=== PATIENT | male | born 1955 | race Caucasian/White ===

== ENCOUNTER 2020-07-22 12:11 | Inpatient (IN) | payer SELFPAY ==
[2020-07-22 13:49] LABS: #Eosinphils 0.1 thou/uL (0.0-0.7); #Lymphocytes 0.6 thou/uL (1.20-3.40); #Monocytes 0.6 thou/uL (0.11-0.59); #Neutrophils 4.8 thou/uL (1.40-6.50); %Eosinophils 1.2 % (0.0-10.0); %Lymphocytes 10.1 % (21.0-51.0); %Monocytes 9.3 % (0.0-10.0); %Neutrophils 79.4 % (42.0-75.0); Hemoglobin 14.9 g/dL (14.0-18.0); Mean Corpuscular HGB CONC 33.8 g/dL (32.0-36.0); Mean Corpuscular Hemoglobin 35.1 pg (27.0-31.0); RBC Distribution Width 13.3 % (11.5-14.5); Red Blood Cell (RBC) Count 4.26 mill/uL (4.70-6.10)
[2020-07-22 14:17] LABS: MDiff Complete? YES; Mean Platelet Volume 6.3 fL (7.4-10.4); Platelet Count 65 thou/uL (130-400)
[2020-07-22 14:18] LABS: Macrocytosis SLIGHT = 6-15 cells (100X) (0-5/hpf); Platelet Morphology Comment Appears Decreased; Polychromasia SLIGHT = 2-3 cells (100X) (0-2/hpf)
[2020-07-22 14:36] LABS: Anion Gap 17 mmol/L (10-20); Calcium 8.9 mg/dL (7.8-10.44); Carbon Dioxide 25 mmol/L (23-31); Chloride 93 mmol/L (98-107); Globulin 5.6 g/dL (2.4-3.5); Glucose 126 mg/dL (80-115); Potassium 3.5 mmol/L (3.5-5.1); Protein, Total 8.6 g/dL (5.8-8.1); Sodium 130 mmol/L (136-145); Sodium 131 mmol/L (136-145)
[2020-07-22 14:37] LABS: Alkaline Phosphatase 111 U/L (40-110); Anion Gap 15 mmol/L (10-20); BUN (Urea Nitrogen) 17 mg/dL (8.4-25.7); BUN (Urea Nitrogen) 18 mg/dL (8.4-25.7); Bilirubin, Total 5.1 mg/dL (0.2-1.2); Calc. Creatinine Clearance 0 mL/min (70-130); Carbon Dioxide 26 mmol/L (23-31); Estimated GFR-MDRD 68; Estimated GFR-MDRD 69
[2020-07-22 14:38] LABS: ALT (SGPT) 36 U/L (8-55); AST (SGOT) 69 U/L (5-34); Bilirubin, Direct 2.8 mg/dL (0.1-0.3)
[2020-07-22 15:16] LABS: Lipase 32 U/L (8-78)
[2020-07-22] MEDS ORDERED: Iopamidol-370 76% 500 ML 1 ML ONE (15:16)
--- NOTE | 2020-07-22 16:20 | CT ---
CT abdomen and pelvis with IV contrast HISTORY: Abdominal pain. Cirrhosis. FINDINGS: Small amount right pleural fluid. 2.2 cm cyst at the superior pole of the left kidney. No e vidence of urinary tract obstruction. Spleen is enlarged up to 14.7 cm. Distended veins present near the splenic hilum. Partial recanalizat ion of the umbilical vein. Small focus of dystrophic calcification in the wall of the gallbladder fundus. Irregular contour of t he liver. No evidence of bowel obstruction. Mild wall thickening and edematous appearance of the colon and, to a lesser extent, the small bowel. Small amount of free fluid present throughout the abdomen. Appendix not inflamed. Dystrophic calcification of the prostate gland. Degenerative changes lumbar spine and hips. Nonenlarged, nonspecific lymph nodes throughout the retroperitoneum. IMPRESSION : Cirrhosis and findings of portal venous hypertension, including splenomegaly, splenic varices, small amount of ascites, small amount right pleural fluid, and congestive appearance of the bowel. Other incidental-type findings as detailed above.
[2020-07-22] MEDS ORDERED: Morphine 4 MG/ML VIAL ONE (16:54)
--- NOTE | 2020-07-22 20:08 | PDOC.BPN ---
- Brief Progress Note [id number] HP dictated
[2020-07-22 20:26] LABS: INR-International Normal Ratio 1.2; Prothrombin Time 15.6 sec (12.0-14.7)
[2020-07-22] MEDS ORDERED: Famotidine/PF 20 mg/2ml Vial SLOW IVP SCH (21:00)
[2020-07-22 22:21] VITALS: BMI 24.4
--- NOTE | 2020-07-22 22:22 | HP ---
CHIEF COMPLAINT: Abdominal pain. HISTORY OF PRESENT ILLNESS: Mr. Cruz is a 65-year-old male with past medical history of liver cirrhosis, hepatitis C, presented to the emergency room with lower abdominal pain. As per patient, the pain has been going on for almost a month. The patient also had severe anorexia, where he has not eaten much over the past few days. The patient said that he had significant ascites, which was tapped about 10 days ago and they got like more than 8 L? Currently, he is on spironolactone 100 mg p.o. twice a day, Lasix 40 mg p.o. daily, omeprazole. He was getting GI care over [facility], but he lost his job and insurance, so he has not seen any GI specialist recently. Workup in the emergency room including imaging studies showed cirrhosis and findings of portal venous hypertension including splenomegaly, splenic varices, a small amount of ascites and small right pleural effusion. Lab work, bilirubin is 5.1, direct is 2.8. Sodium is 130, alkaline phosphatase 111, AST is 69, ALT 36, CRP 0.6. WBC count is 6, hemoglobin 14.9, platelets 65. As per patient's family, patient has been feeling weak that he has been passing out. The last time was a week ago. The patient is being admitted to hospital for further management. PAST MEDICAL HISTORY: As mentioned above in history of present illness. PAST SURGICAL HISTORY: None except for paracentesis. SOCIAL HISTORY: He currently uses tobacco, smokes cigarettes. He smokes half pack per day. He used to be a heavy drinker, but he cut down significantly. Denies drug abuse. FAMILY HISTORY: Reviewed and noncontributory. HOME MEDICATIONS: See home medication reconciliation form for updated medications. ALLERGIES: NO KNOWN ALLERGIES. REVIEW OF SYSTEMS: Review of 14 systems negative except for what is mentioned in history of present illness. PHYSICAL EXAMINATION: GENERAL: The patient is awake, alert, in moderate distress. VITAL SIGNS: Blood pressure is 114/74, pulse is 80, respiratory rate is 18, temperature 99, oxygen saturation 98% on room air. HEAD AND NECK: Normocephalic, atraumatic. Sclerae icteric. HEART: S1, S2. Regular. ABDOMEN: Mildly distended. Diffusely tender, more in the lower abdomen. Bowel sounds present. NEUROLOGIC: Awake, alert, oriented x3. No focal deficit. PSYCH: Unable to assess. EXTREMITIES: No clubbing, no cyanosis. GENITOURINARY: Mild suprapubic tenderness. No flank tenderness. SKIN: No apparent rash. LABORATORY DATA: As mentioned above in history of present illness. IMAGING STUDIES: As mentioned above in history of present illness. ASSESSMENT: 1. Abdominal pain, etiology? Not clear. 2. Liver cirrhosis. 3. Hepatitis C. 4. History of alcohol abuse. 5. Thrombocytopenia. 6. Hyponatremia. 7. Generalized weakness. PLAN: 1. Admit. 2. Pain management with close monitoring of vital signs if he requires a high dose of IV opiates. 3. GI consulted for evaluation and further recommendations. 4. Reconcile home medications. 5. DVT prophylaxis as appropriate. 6. Expected length of stay at least 1 midnight. Job ID: [id number]
[2020-07-22] MEDS: Spironolactone 100 MG TAB PO SCH (23:10)
[2020-07-23 05:12] LABS: ALT (SGPT) 30 U/L (8-55); AST (SGOT) 51 U/L (5-34); Albumin 2.6 g/dL (3.4-4.8); Alkaline Phosphatase 94 U/L (40-110); Anion Gap 14 mmol/L (10-20); BUN (Urea Nitrogen) 22 mg/dL (8.4-25.7); Bilirubin, Total 4.4 mg/dL (0.2-1.2); Calc. Creatinine Clearance 67 mL/min (70-130); Calcium 8.3 mg/dL (7.8-10.44); Carbon Dioxide 25 mmol/L (23-31); Chloride 93 mmol/L (98-107); Estimated GFR-MDRD 68; Globulin 4.4 g/dL (2.4-3.5); Glucose 101 mg/dL (80-115); Potassium 3.8 mmol/L (3.5-5.1); Sodium 128 mmol/L (136-145)
[2020-07-23 05:38] LABS: #Eosinphils 0.2 thou/uL (0.0-0.7); #Lymphocytes 0.7 thou/uL (1.20-3.40); #Monocytes 0.6 thou/uL (0.11-0.59); #Neutrophils 3.5 thou/uL (1.40-6.50); %Basophils 0.7 % (0.0-1.0); %Eosinophils 4.1 % (0.0-10.0); %Monocytes 12.1 % (0.0-10.0); %Neutrophils 69.1 % (42.0-75.0); Hemoglobin 12.4 g/dL (14.0-18.0); Mean Corpuscular HGB CONC 35.7 g/dL (32.0-36.0); Mean Corpuscular Hemoglobin 37.2 pg (27.0-31.0); Mean Platelet Volume 6.4 fL (7.4-10.4); Platelet Count 53 thou/uL (130-400); RBC Distribution Width 13.3 % (11.5-14.5); Red Blood Cell (RBC) Count 3.34 mill/uL (4.70-6.10); White Blood Cell (WBC) Count 5.1 thou/uL (4.8-10.8)
[2020-07-23 05:39] LABS: MDiff Complete? YES; Macrocytosis SLIGHT = 6-15 cells (100X) (0-5/hpf); Platelet Morphology Comment Appears Decreased
[2020-07-23] MEDS: Spironolactone 100 MG TAB PO SCH ×2 (10:14→20:57)
[2020-07-23] MEDS: Furosemide 40 MG TAB PO SCH (10:14)
[2020-07-23] MEDS: Morphine 2 MG/ML VIAL SLOW IVP PRN ×2 (10:14→14:37)
[2020-07-23] MEDS: cefTRIAXone\\ROCEPHIN 1 GM in Sodium Chloride 0.9% 100 ML IVPB SCH (10:15)
[2020-07-23] MEDS ORDERED: GoLYTELY 4,000 ml Bottle PO SCH (17:00)
--- NOTE | 2020-07-23 18:44 | PDOC.HOSPP ---
- Subjective Encounter Date: 07/23/20 Encounter Time: 12:00 Subjective: Patient was seen and examined in bed. He complains of ongoing abdominal pain. Denies any chest pain or shortness of breath. He refused to have Covid tested prior to admission. no significant overnight events. - Objective Vital Signs & Weight: Vital Signs (12 hours) Temp Pulse Resp BP BP Pulse Ox 07/23/20 16:32 98.0 F 97 18 121/73 95 07/23/20 11:45 97.2 F L 90 18 124/76 96 07/23/20 09:25 98.1 F 100 18 124/69 96 07/23/20 07:34 98.0 F 95 16 118/68 97 Weight Admit Weight 151 lb 8 oz Weight 151 lb 8 oz I&O: 07/22/20 07/23/20 07/24/20 06:59 06:59 06:59 Intake Total 150 Output Total 200 Balance -50 Result Diagrams: 07/23/20 04:15 07/23/20 04:15 Additional Labs: Accuchecks 07/23/20 09:20 POC Glucose 112 H Hospitalist ROS - Medication Medications: Active Medications Generic Name Dose Route Start Last Admin Trade Name Freq PRN Reason Stop Dose Admin Furosemide 40 mg 07/23/20 07:30 07/23/20 10:14 Furosemide 40 Mg Tab PO 40 mg DAILY-AC TONY Administration Ceftriaxone Sodium 1 gm/ 100 mls @ 200 mls/hr 07/23/20 10:00 07/23/20 10:15 Sodium Chloride IVPB 100 mls 1000 TONY Administration Morphine Sulfate 2 mg 07/23/20 09:59 07/23/20 14:37 Morphine 2 Mg/Ml Vial SLOW IVP 2 mg Q4H PRN Administration Pain Pantoprazole Sodium 40 mg 07/23/20 09:00 07/23/20 10:14 Pantoprazole 40 Mg Tab PO 40 mg DAILY TONY Administration Polyethylene Glycol/Electrolytes 4,000 ml 07/23/20 17:00 07/23/20 17:04 Golytely 4,000 Ml Bottle PO 07/23/20 23:59 4,000 ml 1700 TONY Administration Spironolactone 100 mg 07/22/20 21:00 07/23/20 10:14 Spironolactone 100 Mg Tab PO 100 mg BID TONY Administration - Exam General Appearance: awake alert General - other findings: Has poor memory of events. Eye: scleral icterus Eye - other findings: No pallor Heart: RRR, no murmur, no gallops, no rubs Respiratory: no wheezes, no rales, no ronchi, no tachypnea Gastrointestinal: soft, normal bowel sounds, tender to palpation Extremities: no cyanosis, no clubbing, no edema Hosp A/P - Plan This is a 65-year-old male patient with a history of liver cirrhosis admitted overnight on account of abdominal pain. He is primarily followed up at [facility]. Abdominal pain Etiology unclear possible SBP Statin ceftriaxone Consult GI As needed pain medications. Liver cirrhosis Associated mild ascites Continue monitoring. Ascites Had a top 10 days ago with 8 L removed Continue on spironolactone and Lasix Thrombocytopenia Likely secondary to liver disease Not on heparin and no schistocytes on smear Anemia Hemoglobin slightly dropped to 12.4 We will continue monitoring. Hyponatremia Mild at 128 Likely secondary to liver disease Sodium restriction Fluid restriction if no improvement Continue BMP monitoring. VT prophylaxisnone CODE STATUSfull code removed.
[2020-07-23] MEDS: Ondansetron PF 4 MG/2 ML Vial IVP PRN (20:56)
[2020-07-23 22:51] LABS: SARS-CoV-2 MS2 Positive; SARS-CoV-2 N Gene Negative; SARS-CoV-2 S Gene Negative; SARS-CoV-2 by NAA Not Detected (NotDetected); SARS-CoV-2 orf1ab Negative
[2020-07-23 22:52] LABS: Bacteria/HPF None Seen HPF (None Seen); Bilirubin Negative (Negative); Blood, Urine Negative (Negative); Clarity Clear (Clear); Glucose, Urine (Dipstick) Normal (Negative); Ketone, Urine Negative (Negative); Leukocyte Negative Leu/uL (Negative); Nitrite Negative (Negative); Protein, Urine (Dipstick) Negative (Neg-Trace); RBC/HPF 0-3 HPF (0-3); Specific Gravity, Urine 1.019 (1.002-1.036); Squamous Epithelial 0-3 HPF (0-3); Urobilinogen Normal mg/dL (Less than 2); WBC/HPF 0-3 HPF (0-3)
[2020-07-24 04:31] LABS: #Eosinphils 0.1 thou/uL (0.0-0.7); #Lymphocytes 0.6 thou/uL (1.20-3.40); #Monocytes 0.6 thou/uL (0.11-0.59); #Neutrophils 3.5 thou/uL (1.40-6.50); %Basophils 0.2 % (0.0-1.0); %Lymphocytes 13.1 % (21.0-51.0); %Monocytes 11.7 % (0.0-10.0); %Neutrophils 72.1 % (42.0-75.0); Hemoglobin 12.3 g/dL (14.0-18.0); Mean Corpuscular HGB CONC 34.9 g/dL (32.0-36.0); Mean Corpuscular Hemoglobin 36.4 pg (27.0-31.0); Mean Platelet Volume 6.2 fL (7.4-10.4); Platelet Count 55 thou/uL (130-400); RBC Distribution Width 13.3 % (11.5-14.5); Red Blood Cell (RBC) Count 3.39 mill/uL (4.70-6.10); White Blood Cell (WBC) Count 4.9 thou/uL (4.8-10.8)
[2020-07-24 04:40] LABS: Anion Gap 15 mmol/L (10-20); BUN (Urea Nitrogen) 23 mg/dL (8.4-25.7); Calc. Creatinine Clearance 77 mL/min (70-130); Calcium 8.4 mg/dL (7.8-10.44); Carbon Dioxide 26 mmol/L (23-31); Chloride 92 mmol/L (98-107); Estimated GFR-MDRD 81; Glucose 103 mg/dL (80-115); Potassium 3.6 mmol/L (3.5-5.1); Sodium 129 mmol/L (136-145)
[2020-07-24] MEDS: cefTRIAXone\\ROCEPHIN 1 GM in Sodium Chloride 0.9% 100 ML IVPB SCH (10:29)
[2020-07-24] MEDS ORDERED: PROPOFOL 200 MG/20 ML VIAL ONE (11:37)
[2020-07-24] MEDS ORDERED: Lidocaine 1% PF 5 ML VIAL ONE (11:37)
--- NOTE | 2020-07-24 12:07 | CON ---
DATE OF CONSULTATION: 07/23/2020 REASON FOR CONSULTATION: Abdominal pain. HISTORY OF PRESENT ILLNESS: Andrew Cruz is a 65-year-old male. He has abdominal pain over the last several weeks. Apparently, the patient was brought to the ER by the family and hospitalized. He appears very comfortable. Abdominal pain is going on for several weeks. The pain is . However, most of the pain is across the lower abdomen. At times, he has had pain over the periumbilical area and also left upper quadrant. He is very nervous and anxious. He is not a good historian. Most of the things he answers by saying that he has been going for some time and is very vague about symptoms. His bowel movements are fairly regular. There is no history of hematochezia or any melena. The patient tells me he has had some difficulty swallowing over the last few days. He feels like his food is hanging up in the esophagus. He had no painful swallowing. He has no heartburn or any reflux symptoms usually. He has no difficulty drinking liquids. He also complains of abdominal pain after meals especially in the epigastric area. The patient has history of alcohol abuse in the past and quit drinking several years ago. He also has history of chronic hepatitis C for more than 20 years. He had liver biopsy done in the past. Apparently, he was never treated for hep C. Initially when he was diagnosed, he was told that hep C and he was hospitalized for a while. The patient has seen Dr. Dean, who is a supply technician in [facility] [place]. few months ago. The patient was seeing Dr. Dean off and on until he lost his insurance, he has not seen him again. The patient has no fever, no tarry stool, no hematochezia. He had no relevant history. ALLERGIES: NO ALLERGIES. SOCIAL HISTORY: A smoker. He smoked now 1/2 pack of cigarettes per day. No history of drug abuse. He quit drinking alcohol in the past. MEDICAL ILLNESSES: 1. Liver cirrhosis, ascites. 2. Previous liver biopsy. 3. Chronic hepatitis C. 4. Ascites, and last was almost 6 months ago. Did not have a tapping. PAST SURGICAL HISTORY: Liver biopsy and also paracentesis. He never had endoscopy like EGD or colonoscopy. FAMILY HISTORY: No family history of liver cirrhosis. No family history of cancer and diabetes. MEDICATIONS: List reviewed. REVIEW OF SYSTEMS: CONSTITUTIONAL: No history any fever. No weight loss. His exercise tolerance is pretty good. HEENT: Head, he has occasional headache and dizziness. Eyes, no diplopia, no impaired vision. Ears, no hearing loss. No nose bleed. No sore throat. No dysphagia. NECK: No stiffness or any limitation of movement. CARDIOVASCULAR SYSTEM: No chest pain. No palpitation. No dyspnea, orthopnea, PND. LUNGS: No chronic coughing, hemoptysis. ABDOMEN: Abdominal pain over the last several weeks. The pain is somewhat fleeting and moves from place to place, at times has pain across the lower abdomen and pain over the epigastric area . No hematochezia. No melena. dysphagia . : No dysuria, hematuria, or frequency of urination. MUSCULOSKELETAL: Not relevant. NEURO: Not relevant. ENDOCRINE: Not relevant. HEMATOLOGICAL: Not relevant. NEUROPSYCHIATRY: Denies any depression or anxiety, but is very anxious and nervous at the present time. PHYSICAL EXAMINATION: GENERAL: Awake, appears very comfortable, in no distress. He is awake, alert, and communicative. He admits to being forgetful. VITAL SIGNS: He is afebrile. His pulse is 95, blood pressure 180/60. EYES: Conjunctiva icteric. NECK: Supple. No adenitis or any enlarged thyroid noted. CARDIOVASCULAR SYSTEM: Normal heart sounds. LUNGS: Good air entry at both sides, but had some scattered rhonchi. ABDOMEN: Soft, but he tends to moan and groan and he is also kind of very nervous and anxious. Abdominal exam is actually very benign. He is tender over the lower abdomen and also epigastric area, left upper quadrant and also at times he just kind of moans where ever we touch. Interestingly though, no guarding or rigidity noted. No rebound. No organomegaly. His bowel sounds are normal. EXTREMITIES: Reveal no edema. MUSIC ADAPTER: Grossly within normal limits. LABORATORY DATA: The admitting lab on 07/22/2020 shows mild hyponatremia, sodium 130 today coming to 128, potassium 3.8 today, chloride 93, bicarb is 25, BUN is 22, creatinine is 1.09, glucose is 101, calcium 8.3, bilirubin is 4.4, AST is 69, ALT is 36, alkaline phosphatase is 111, albumin 3, globulin 5.6. CBC on admission, WBC 6000, hemoglobin 14.9, dropping to 12.4 today, hematocrit 44.3 dropping down to 34.9, MCV 104 indicative of alcohol abuse, platelet count is 53,000, polymorphs 69, lymphocytes 14, monocytes 12. He had a CAT scan of abdomen done on admission with liver cirrhosis, portal hypertension, enlarged spleen and minimal ascites. He also has some rectal bleed. No masses seen. CLINICAL IMPRESSION: 1. A 65-year-old male with history of alcohol abuse and also history of hepatitis C in the past. He has been diagnosed with liver cirrhosis from before. He has had ascites off and on and had a paracentesis done a few months ago. The patient's abdominal pain is very vague. Abdominal exam is actually very benign and he is kind of tender where ever we touch him. The etiology is unclear of abdominal pain. 2. Chronic hepatitis C, untreated. 3. Liver cirrhosis with alcohol abuse and hepatitis C. 4. Ascites, status post paracentesis recently. RECOMMENDATIONS: May consider EGD because of the history of dysphagia. He really should also have a colonoscopy to complete the workup. Based on our physical findings and . I will try to talk to his family and hopefully proceed with tomorrow. Job ID: [id number]
[2020-07-24] MEDS: Spironolactone 100 MG TAB PO SCH ×2 (12:39→21:06)
[2020-07-24] MEDS: Furosemide 40 MG TAB PO SCH (16:31)
--- NOTE | 2020-07-24 18:23 | PDOC.HOSPP ---
- Subjective Encounter Date: 07/24/20 Encounter Time: 11:00 Subjective: Patient was seen and examined in bed. He complained of ongoing abdominal pain otherwise denied any chest pain or shortness of breath. No significant events overnight. - Objective Vital Signs & Weight: Vital Signs (12 hours) Temp Pulse Pulse Pulse Resp BP BP 07/24/20 15:39 98.5 F 94 16 07/24/20 11:09 98.0 F 96 16 07/24/20 09:05 92 97 127/78 125/70 07/24/20 07:24 98.6 F 91 14 BP Pulse Ox 07/24/20 15:39 112/73 95 07/24/20 11:09 117/69 96 07/24/20 09:05 07/24/20 07:24 116/77 96 Weight Admit Weight 151 lb 8 oz Weight 151 lb 8 oz I&O: 07/23/20 07/24/20 07/25/20 06:59 06:59 06:59 Intake Total 150 600 Output Total 200 200 Balance -50 400 Result Diagrams: 07/24/20 03:59 07/24/20 03:59 Hospitalist ROS - Medication Medications: Active Medications Generic Name Dose Route Start Last Admin Trade Name Freq PRN Reason Stop Dose Admin Furosemide 40 mg 07/23/20 07:30 07/24/20 16:31 Furosemide 40 Mg Tab PO Not Given DAILY-AC TONY Ceftriaxone Sodium 1 gm/ 100 mls @ 200 mls/hr 07/23/20 10:00 07/24/20 10:29 Sodium Chloride IVPB 100 mls 1000 TONY Administration Morphine Sulfate 2 mg 07/23/20 09:59 07/23/20 14:37 Morphine 2 Mg/Ml Vial SLOW IVP 2 mg Q4H PRN Administration Pain Ondansetron HCl 4 mg 07/22/20 19:38 07/23/20 20:56 Ondansetron Pf 4 Mg/2 Ml Vial IVP 4 mg Q6H PRN Administration Nausea/Vomiting Pantoprazole Sodium 40 mg 07/23/20 09:00 07/24/20 16:31 Pantoprazole 40 Mg Tab PO Not Given DAILY TONY Spironolactone 100 mg 07/22/20 21:00 07/24/20 12:39 Spironolactone 100 Mg Tab PO Not Given BID TONY - Exam General Appearance: awake alert General - other findings: Intermittently tearful Heart: RRR, no murmur, no gallops, no rubs Respiratory: no wheezes, no rales, no tachypnea Gastrointestinal: soft, non-distended, normal bowel sounds, tender to palpation Extremities: no cyanosis, no clubbing, no edema Neurological: cranial nerve grossly intact, no weakness Psychiatric: A&O x 3, flat affect Hosp A/P - Plan This is a 65-year-old male patient with a history of liver cirrhosis admitted overnight on account of abdominal pain. He is primarily followed up at [facility]. Abdominal pain Etiology unclear possible SBP Continue ceftriaxone and Protonix GI to do EGD today Liver cirrhosis Associated mild ascites Continue monitoring. Ascites Had a top 10 days ago with 8 L removed Continue on spironolactone and Lasix Thrombocytopenia Likely secondary to liver disease Not on heparin and no schistocytes on smear Anemia Hemoglobin stable above 12. Continue monitoring. Hyponatremia Improving Likely secondary to liver disease Sodium restriction Fluid restriction if no improvement Continue BMP monitoring. VT prophylaxisnone CODE STATUSfull code removed.
[2020-07-24] MEDS ORDERED: Midazolam HCl 2 mg/2 ml Vial ONE (19:13)
[2020-07-24] MEDS ORDERED: Ondansetron HCl/PF 4 MG/2 ML Vial IVP PRN ×2 (19:41→19:50)
[2020-07-24] MEDS ORDERED: Promethazine HCl 25 MG/ML VIAL SLOW IVP PRN ×2 (19:41→19:50)
[2020-07-24] MEDS ORDERED: Promethazine HCl 25 MG/ML VIAL IM PRN ×2 (19:41→19:50)
[2020-07-24] MEDS ORDERED: Fentanyl 100 MCG/2 ML VIAL ONE (19:49)
[2020-07-24] MEDS ORDERED: Ondansetron PF 4 MG/2 ML Vial ONE (19:49)
[2020-07-24] MEDS: Morphine 2 MG/ML VIAL SLOW IVP PRN (21:06)
[2020-07-24] MEDS: Ondansetron PF 4 MG/2 ML Vial IVP PRN (21:06)
[2020-07-25] MEDS: Ondansetron PF 4 MG/2 ML Vial IVP PRN ×3 (00:41→17:09)
[2020-07-25] MEDS: Morphine 2 MG/ML VIAL SLOW IVP PRN ×3 (00:41→12:05)
[2020-07-25 04:50] LABS: #Eosinphils 0.2 thou/uL (0.0-0.7); #Lymphocytes 0.9 thou/uL (1.20-3.40); #Monocytes 0.5 thou/uL (0.11-0.59); #Neutrophils 3.7 thou/uL (1.40-6.50); %Basophils 0.9 % (0.0-1.0); %Eosinophils 2.9 % (0.0-10.0); %Lymphocytes 16.7 % (21.0-51.0); %Monocytes 9.3 % (0.0-10.0); %Neutrophils 70.1 % (42.0-75.0); Hemoglobin 13.1 g/dL (14.0-18.0); Mean Corpuscular HGB CONC 34.3 g/dL (32.0-36.0); Mean Corpuscular Hemoglobin 35.6 pg (27.0-31.0); Mean Platelet Volume 6.5 fL (7.4-10.4); Platelet Count 67 thou/uL (130-400); RBC Distribution Width 13.4 % (11.5-14.5); Red Blood Cell (RBC) Count 3.69 mill/uL (4.70-6.10); White Blood Cell (WBC) Count 5.2 thou/uL (4.8-10.8)
[2020-07-25 05:17] LABS: Anion Gap 10 mmol/L (10-20); BUN (Urea Nitrogen) 21 mg/dL (8.4-25.7); Calc. Creatinine Clearance 65 mL/min (70-130); Calcium 8.3 mg/dL (7.8-10.44); Carbon Dioxide 29 mmol/L (23-31); Chloride 95 mmol/L (98-107); Estimated GFR-MDRD 66; Glucose 114 mg/dL (80-115); Potassium 3.5 mmol/L (3.5-5.1); Sodium 130 mmol/L (136-145)
[2020-07-25] MEDS ORDERED: GoLYTELY 4,000 ml Bottle PO SCH ×2 (06:00→18:00)
--- NOTE | 2020-07-25 07:27 | OP ---
DATE OF PROCEDURE: 07/24/2020 PROCEDURE PERFORMED: Esophagogastroduodenoscopy with biopsy. PREOPERATIVE DIAGNOSES: Abdominal pain, nausea. POSTOPERATIVE DIAGNOSES: 1. One single column of distal esophagus. 2. Irregular Z-line. 3. Small hiatus hernia. 4. Diffuse portal hypertensive gastropathy - gastritis. 5. Normal duodenum. DESCRIPTION OF PROCEDURE: The patient was placed on his left lateral position and was given sedation by Anesthesia Department. A Pentax video gastroscope under direct vision passed down the oropharynx past the GE junction into the stomach and subsequently into the descending duodenum. The esophageal mucosa appeared normal. Over distal esophagus, the patient had a single column of . The Z-line is irregular. He had a small hiatus hernia. Retroflexion failed to show any pathology in fundus or cardia. The patient appears to have what appears to be diffuse hypertensive portal gastropathy. . It is also possible that he could have some diffuse gastritis. Biopsy obtained from gastric antrum and gastric body. The duodenal bulb had no pathology. The descending duodenum shows diverticulum. The stomach was decompressed and the scope was removed. RECOMMENDATIONS: 1. Gastric biopsy. 2. He is on pantoprazole at the present time. We will continue pantoprazole as before. 3. Colonoscopy hopefully tomorrow . Job ID: [id number]
--- NOTE | 2020-07-25 11:41 | PRG ---
DATE OF SERVICE: 07/25/2020 SUBJECTIVE: Mr. Cruz says he drank almost all of his prep last night, but then this morning, he had several bites of a cheeseburger when he was supposed to be n.p.o. Per nursing, his stool is really not clear, there are still several small solid chunks, otherwise dark brown liquid. OBJECTIVE: VITAL SIGNS: Temperature 97.6, pulse 87, blood pressure 133/74, and 97% oxygen saturation on room air. GENERAL: In no acute distress, sitting up on edge of bed comfortably. HEART: Regular rate and rhythm. LUNGS: Clear to auscultation bilaterally. ABDOMEN: Nondistended. Bowel sounds present. Nontender. EXTREMITIES: No peripheral edema. LABORATORY STUDIES: WBC 5.2, hemoglobin 13.1, and platelets 67. INR 1.2. Sodium 130, potassium 3.5, BUN 21, creatinine is 1.12. Folate 5.2, B12 greater than 2000. COVID PCR negative. Urinalysis negative. ASSESSMENT AND PLAN: 1. Generalized abdominal pain. 2. Portal hypertensive gastropathy. 3. Alcoholic liver disease. Agree with Dr. Almaguer that colonoscopy is indicated to complete the workup for abdominal pain with essentially negative CT imaging and EGD. However, the patient had solid food this morning and we are going to have to cancel the procedure for today. At any rate, he did not clear with the bowel prep. He is not really happy about this, but understands the reasons for needing to delay the procedure. We will have him on a clear liquid diet today, administer another half gallon prep this evening, and plan for colonoscopy tomorrow with Dr. Almaguer. Job ID: [id number]
[2020-07-25] MEDS: cefTRIAXone\\ROCEPHIN 1 GM in Sodium Chloride 0.9% 100 ML IVPB SCH (12:00)
[2020-07-25] MEDS: Furosemide 40 MG TAB PO SCH (12:08)
[2020-07-25] MEDS: Spironolactone 100 MG TAB PO SCH ×2 (12:08→20:28)
--- NOTE | 2020-07-25 15:15 | PDOC.FMACP ---
Advance Care Planning - Problem (1) Liver cirrhosis Status: Acute Code(s): K74.60 - UNSPECIFIED CIRRHOSIS OF LIVER (2) Ascites Status: Acute Code(s): R18.8 - OTHER ASCITES (3) Abdominal pain Status: Acute Code(s): R10.9 - UNSPECIFIED ABDOMINAL PAIN (4) Declining functional status Status: Acute Code(s): R53.81 - OTHER MALAISE (5) Palliative care encounter Status: Acute Code(s): Z51.5 - ENCOUNTER FOR PALLIATIVE CARE - Note Participants: patient, palliative care Summary: Palliative care introduced Advanced Care Planning, opportunity to decline. The diagnosis, prognosis and goals of care were discussed. Appropriate forms and documentation to accomplish the goals of care were discussed. All questions were answered. Mr Cruz elected to complete a MPOA naming his daughter. Directive to physician left for he and his daughter to review. He states that he quit drinking 3 weeks ago, and did not realize that "he drank alot". He states he has never used IV drugs. Lives independently with his dogs. Discussed consideration for what his wishes are if he declines, appears to not desire very aggressive measures. He states that if it is 'his time' he wishes to just be at home and comfortable. Discussed revisiting goal of care after completion of diagnostics and that with continued cessation of alcohol and compliance with f ollow up suggestions he may have an improved quality of life. Palliative Care will assist in completion of Directive to Physician 07/26/2020 Further revisit Goal of Care 07/26/2020 Time Spent (mins): 45
--- NOTE | 2020-07-25 18:15 | PDOC.HOSPP ---
- Subjective Encounter Date: 07/25/20 Subjective: Patient was seen and examined in bed. He was unable to have colonoscopy this morning due to inadequate preparation. He complains of mild abdominal pain however no shortness of breath. - Objective Vital Signs & Weight: Vital Signs (12 hours) Temp Pulse Pulse Resp BP BP BP 07/25/20 15:30 97.8 F 96 18 114/77 07/25/20 14:56 96 114/76 07/25/20 11:55 98.1 F 97 16 124/74 07/25/20 07:28 97.6 F 87 16 133/74 Pulse Ox 07/25/20 15:30 95 07/25/20 14:56 07/25/20 11:55 96 07/25/20 07:28 97 Weight Admit Weight 151 lb 8 oz Weight 151 lb 8 oz I&O: 07/24/20 07/25/20 07/26/20 06:59 06:59 06:59 Intake Total 600 2500 Output Total 200 Balance 400 2500 Result Diagrams: 07/25/20 04:14 07/25/20 04:14 Hospitalist ROS - Medication Medications: Active Medications Generic Name Dose Route Start Last Admin Trade Name Freq PRN Reason Stop Dose Admin Furosemide 40 mg 07/23/20 07:30 07/25/20 12:08 Furosemide 40 Mg Tab PO 40 mg DAILY-AC TONY Administration Ceftriaxone Sodium 1 gm/ 100 mls @ 200 mls/hr 07/23/20 10:00 07/25/20 12:00 Sodium Chloride IVPB 100 mls 1000 TONY Administration Morphine Sulfate 2 mg 07/23/20 09:59 07/25/20 12:05 Morphine 2 Mg/Ml Vial SLOW IVP 2 mg Q4H PRN Administration Pain Ondansetron HCl 4 mg 07/22/20 19:38 07/25/20 17:09 Ondansetron Pf 4 Mg/2 Ml Vial IVP 4 mg Q6H PRN Administration Nausea/Vomiting Pantoprazole Sodium 40 mg 07/23/20 09:00 07/25/20 12:08 Pantoprazole 40 Mg Tab PO 40 mg DAILY TONY Administration Polyethylene Glycol/Electrolytes 2,000 ml 07/25/20 18:00 07/25/20 17:59 Golytely 4,000 Ml Bottle PO 07/25/20 23:00 2,000 ml 1800 TONY Administration Spironolactone 100 mg 07/22/20 21:00 07/25/20 12:08 Spironolactone 100 Mg Tab PO 100 mg BID TONY Administration - Exam General Appearance: awake alert Heart: RRR, no murmur, no gallops, no rubs Respiratory - other findings: Bilateral wheezing and rhonchi Gastrointestinal: soft, non-distended, normal bowel sounds, tender to palpation Extremities: no cyanosis, no clubbing, no edema Neurological: cranial nerve grossly intact, no weakness Psychiatric: normal affect, A&O x 3 Hosp A/P - Plan This is a 65-year-old male patient with a history of liver cirrhosis admitted overnight on account of abdominal pain. He is primarily followed up at [facility]. Had EDG a day ago which was negative. Currently waiting to have colonoscopy. Abdominal pain EGD a day ago showed no significant pathology Could not do colonoscopy today on account of poor preparation For colonoscopy tomorrow For now continue on ceftriaxone for presumably SBP Continue on Protonix for now Liver cirrhosis Associated mild ascites Continue monitoring. Ascites Had a top 10 days ago with 8 L removed Continue on spironolactone and Lasix Thrombocytopenia Stable Likely secondary liver disease Anemia Hemoglobin stable above 12. Continue monitoring. Hyponatremia Improving Likely secondary to liver disease Sodium restriction Fluid restriction if no improvement Continue BMP monitoring. Hepatitis C infection Follow-up treatment on outpatient basis Tobacco abuse Patient continues smoking Completely goes downstairs to smoke Counseled about dangers VT prophylaxisnone CODE STATUSfull code removed.
[2020-07-26] MEDS ORDERED: PROPOFOL 200 MG/20 ML VIAL ONE (09:07)
[2020-07-26] MEDS: cefTRIAXone\\ROCEPHIN 1 GM in Sodium Chloride 0.9% 100 ML IVPB SCH (10:22)
[2020-07-26] MEDS: Spironolactone 100 MG TAB PO SCH (10:22)
[2020-07-26] MEDS: Furosemide 40 MG TAB PO SCH (10:22)
--- NOTE | 2020-07-26 10:24 | OP ---
DATE OF PROCEDURE: 07/26/2020 OPERATIVE PROCEDURES: Colonoscopy with polypectomy. PREOPERATIVE DIAGNOSES: Abdominal pain, colon cancer screening. POSTOPERATIVE DIAGNOSES: 1. Hemorrhoids. 2. 1 cm sessile polyp, rectum status post snare cautery with good hemostasis. 3. Otherwise normal colonoscopy, but; however, the prep was not very satisfactory in spite of the patient taking his prep for couple of days in a row. The quality of prep was not very good and the exam was less than satisfactory overall. DESCRIPTION OF PROCEDURE: The patient was placed on his left lateral position and was given sedation by Anesthesia Department. A rectal exam was done before scope was advanced into the rectum. No lesions felt on rectal exam. A Pentax videocolonoscope was introduced into rectum, advanced all the way to the cecum. The quality of prep was really not that good in spite of the patient taking the prep for yesterday and day before yesterday. The mucosa had some patchy mucosal edema and erythema. The appendicular opening, ileocecal valve, and cecum, no pathology seen. Withdrawal of scope in the cecum to ascending colon, hepatic flexure, transverse colon, splenic flexure, descending colon, sigmoid colon no pathology. The rectum showed a 1 cm sessile polyp. This was removed with snare cautery. Good hemostasis noted. Rectum has no hemorrhoids. Job ID: [id number]
[2020-07-26 11:51] VITALS: TEMP 97.7
[2020-07-26 16:21] VITALS: BP 121/67
--- NOTE | 2020-07-26 18:26 | PDOC.DS.DS ---
Provider - Provider Date of Admission: 07/22/20 18:24 Date of Discharge: 09/25/19 Admitting Provider: Dale Haas MD Primary Care Physician: Reginald Mei MD Course - Hospital Course Hospital Course: This is a 65-year-old male patient with a history of cirrhosis, hepatitis C who presented on account of ongoing abdominal pain for about 1 month. Significantly reduced his appetite. Initial evaluation of abdominal CT revealed no acute process besides a cirrhotic liver and mild ascites. He was started on pantoprazole. Gastroenterology was consulted. He had an upper and lower GI endoscopy which did not reveal any cause of his abdominal pain. He has a history of COPD, he had intermittent wheezing for which he received duo nebs On this admission palliative care was consulted to discuss goals of care. The plan for hospice was brought up which the patient was open to but not ready to discuss until after Thanksgiving. Patient was discharged on ondansetron and to continue on PPIs. Was follow-up with his PCP for further management. Resuscitation Status: 07/22/20 19:38 Resuscitation Status Routine Resuscitation Status: FULL: Full Resuscitation - Labs Lab Results: 07/25/20 04:14 07/25/20 04:14 Abnormal Lab Results - Last 48 hrs 07/25/20 04:14: Sodium 130 L, Chloride 95 L 07/25/20 04:14: Folate 5.20 L 07/25/20 04:14: Vitamin B12 Greater than 2000 H 07/25/20 04:14: RBC 3.69 L, Hgb 13.1 L, Hct 38.2 L, MCV 104.0 H, MCH 35.6 H, Plt Count 67 L, MPV 6.5 L, Lymphocytes % 16.7 L, Lymphocytes # 0.9 L Microbiology - Entire Visit 07/23/20 10:12 Venous blood - Right Hand Blood Culture - Preliminary NO GROWTH AT 48 HOURS 07/23/20 10:33 Venous blood - Left Hand Blood Culture - Preliminary NO GROWTH AT 48 HOURS - Physical Exam Vitals: Vital Signs (12 hours) Temp Pulse Pulse Pulse Resp BP BP 07/26/20 13:48 114 H 118 H 121/67 105/67 07/26/20 11:49 97.7 F 110 H 17 07/26/20 10:44 80 20 07/26/20 08:00 97.1 F L 88 17 BP Pulse Ox 07/26/20 13:48 07/26/20 11:49 109/59 L 95 07/26/20 10:44 93 L 07/26/20 08:00 116/59 L 96 Weight Admit Weight 151 lb 8 oz Weight 151 lb 8 oz Physical Exam: The patient was seen and examined on the day of discharge. General: In no acute distress. However cachectic looking. Respiratory system: Bilateral occasional wheezing. CVS: S1-S2 present. No medical service. Abdomen: Mildly tender. No rebound tenderness or guarding. Extremities: No pedal edema. Problem - Discharge Plan Assessment: Abdominal pain The setting of liver cirrhosis however unclear etiology for pain at the moment. We will continue PPI and as needed ondansetron. You follow-up with GI outpatient basis. Liver cirrhosis Follow-up with GI for outpatient management. Hepatitis C Follow-up with GI/PCP for further management Plan - Discharge Medications Prescriptions: Ondansetron HCl [Zofran] 4 mg PO Q4HR PRN #16 tab PRN Reason: Nausea/Vomiting Home Medications: Medication Instructions Recorded Confirmed Type ALButerol Sulfate [Ventolin Neb] 3 ml NEB Q8HR 07/22/20 07/22/20 History Finasteride 5 mg PO DAILY 07/22/20 07/22/20 History Furosemide 40 mg PO DAILY 07/22/20 07/22/20 History Omeprazole 40 mg PO DAILY 07/22/20 07/22/20 History Spironolactone [Aldactone] 100 mg PO BID 07/22/20 07/22/20 History Ondansetron HCl [Zofran] 4 mg PO Q4HR PRN #16 tab 07/26/20 Rx Allergies: No Known Allergies Allergy (Unverified 07/22/20 19:41) - Discharge Instructions Activity:: Activity as Tolerated Nourishment:: Heart Healthy Diet, Low Sodium Diet - Follow up Plan Referrals: Juan Daniel Almaguer MD [Active] - 14 Days (Please call the office to schedule an appointment within the next two weeks) Reginald Mei MD [Primary Care Provider] - 7 Days (Please call the office to schedule an appointment within the next 7 days) Disposition: HOME Quality - Care Measures CORE MEASURES:: N/A
--- NOTE | 2020-07-27 09:18 | EKG ---
Test Reason : Blood Pressure : / mmHG Vent. Rate : 098 BPM Atrial Rate : 098 BPM P-R Int : 124 ms QRS Dur : 072 ms QT Int : 366 ms P-R-T Axes : 059 037 042 degrees QTc Int : 467 ms Sinus rhythm with occasional Premature ventricular complexes Otherwise normal ECG Confirmed by SIMÓN AMOR, WALT ([id number] on 07/27/2020 9:17:30 AM Referred By: AFFRAM Confirmed By:WALT GR MD
== END 2020-07-26 14:20 | disposition home or self-care (01) | DRG 433 ==
LOC: ERS 12:11 → 2NO 18:24
PROVIDERS: ADMIT Internal Medicine; ATTEND Internal Medicine
PROC: 0DB68ZX Excision of Stomach, Via Natural or Artificial Opening Endoscopic, Diagnostic (ICD-10-PCS; principal; 2020-07-24)
PROC: 0DB78ZX Excision of Stomach, Pylorus, Via Natural or Artificial Opening Endoscopic, Diagnostic (ICD-10-PCS; 2020-07-24)
PROC: 0DBP8ZZ Excision of Rectum, Via Natural or Artificial Opening Endoscopic (ICD-10-PCS; 2020-07-26)
DX: K70.31 Alcoholic cirrhosis of liver with ascites (principal); E87.1 Hypo-osmolality and hyponatremia; K76.6 Portal hypertension; R10.9 Unspecified abdominal pain; Z20.828 Contact with and (suspected) exposure to other viral communicable diseases; F17.210 Nicotine dependence, cigarettes, uncomplicated; D64.9 Anemia, unspecified; B18.2 Chronic viral hepatitis C; F10.10 Alcohol abuse, uncomplicated; K44.9 Diaphragmatic hernia without obstruction or gangrene; K29.70 Gastritis, unspecified, without bleeding; D69.59 Other secondary thrombocytopenia; K64.9 Unspecified hemorrhoids; I10 Essential (primary) hypertension; K62.1 Rectal polyp; Z79.899 Other long term (current) drug therapy
CPT/HCPCS: 36415; 36416; 74177; 80048; 80053; 80076; 81001; 82607; 82746; 83690; 84484; 85025; 85610; 86140; 87040; 87635; 88305; 88312; 93005; 93010; 94640; 96374; J0696; J2250; J2270; J2405; J2704; J3010; J3490; J7620; Q9967; U0003

== ENCOUNTER 2021-05-22 10:28 | Emergency (ER) | payer MEDICARE, SELFPAY ==
[2021-05-22 11:31] LABS: Hemoglobin 14.1 g/dL (14.0-18.0); Mean Corpuscular HGB CONC 33.6 g/dL (32.0-36.0); Mean Corpuscular Hemoglobin 33.9 pg (27.0-31.0); RBC Distribution Width 13.4 % (11.5-14.5); Red Blood Cell (RBC) Count 4.16 mill/uL (4.70-6.10); White Blood Cell (WBC) Count 4.9 thou/uL (4.8-10.8)
[2021-05-22] MEDS ORDERED: Ondansetron PF 4 MG/2 ML Vial ONE ×2 (11:54→15:01)
[2021-05-22] MEDS ORDERED: Fentanyl 100 MCG/2 ML VIAL ONE ×2 (11:54→14:31)
[2021-05-22] MEDS ORDERED: Albuterol Sulfate 1.25 MG/3 ML NEB ONE (11:54)
[2021-05-22 11:57] LABS: #Eosinphils 0.1 thou/uL (0.0-0.7); #Lymphocytes 0.5 thou/uL (1.20-3.40); #Monocytes 0.3 thou/uL (0.11-0.59); #Neutrophils 4.1 thou/uL (1.40-6.50); %Basophils 0.2 % (0.0-1.0); %Eosinophils 1.4 % (0.0-10.0); %Lymphocytes 10.3 % (21.0-51.0); %Monocytes 5.8 % (0.0-10.0); %Neutrophils 82.4 % (42.0-75.0); Mean Platelet Volume 7.2 fL (7.4-10.4); Platelet Count 39 thou/uL (130-400); Platelet Morphology Comment Appears Decreased; RBC Morphology Normal
[2021-05-22 11:58] LABS: ALT (SGPT) 23 U/L (8-55); AST (SGOT) 54 U/L (5-34); Albumin 3.3 g/dL (3.4-4.8); Alkaline Phosphatase 81 U/L (40-110); Anion Gap 15 mmol/L (10-20); BUN (Urea Nitrogen) 12 mg/dL (8.4-25.7); Bilirubin, Total 3.2 mg/dL (0.2-1.2); Calc. Creatinine Clearance 0 mL/min (70-130); Calcium 9.1 mg/dL (7.8-10.44); Carbon Dioxide 24 mmol/L (23-31); Chloride 98 mmol/L (98-107); Globulin 4.7 g/dL (2.4-3.5); Glucose 133 mg/dL (80-115); Potassium 4.7 mmol/L (3.5-5.1); Sodium 132 mmol/L (136-145)
[2021-05-22] MEDS ORDERED: Iopamidol-370 76% 500 ML 1 ML ONE (12:01)
[2021-05-22 14:07] LABS: Bacteria/HPF 1+ HPF (None Seen); Bilirubin Negative (Negative); Blood, Urine Negative (Negative); Clarity Clear (Clear); Glucose, Urine (Dipstick) Normal (Negative); Ketone, Urine 10 mg/dL (Negative); Leukocyte Negative Leu/uL (Negative); Nitrite Negative (Negative); Protein, Urine (Dipstick) 30 mg/dL (Neg-Trace); RBC/HPF 0-3 HPF (0-3); Specific Gravity, Urine 1.026 (1.002-1.036); Squamous Epithelial None Seen HPF (0-3); pH, Urine 5.5 (5.0-9.0)
== END 2021-05-22 15:23 | disposition home or self-care (01) ==
LOC: ERS 10:28
DX: K42.9 Umbilical hernia without obstruction or gangrene (principal); R18.8 Other ascites; J44.9 Chronic obstructive pulmonary disease, unspecified; K74.60 Unspecified cirrhosis of liver; I10 Essential (primary) hypertension; F17.210 Nicotine dependence, cigarettes, uncomplicated; Z79.899 Other long term (current) drug therapy
CPT/HCPCS: 74177; 80053; 81003; 81015; 85025; 96374; 96375; 96376; J2405; J3010; Q9967